=== PATIENT | male | born 1985 | race Caucasian/White ===

== ENCOUNTER 2023-07-22 18:03 | Emergency (ER) | payer OTHER, SELFPAY ==
--- NOTE | ~2023-07-22 | XR_ITS ---
AP and lateral views of the left hip Clinical history: Pain Findings: No definite acute fracture or dislocation is seen. Probable chronic posttraumatic change or enthesopathic change at the greater trochanter.. Left hip joint space is preserved. Soft tissues are unremarkable. Impression: No definite acute abnormality seen. Probable chronic posttraumatic change or enthesopathic change at the greater trochanter. If there is clinical concern for acute fracture isolated to the greater troch anter, then consider cross-sectional imaging for further evaluation. Reviewed, dictated and finalized at location . Impression: No definite acute abnormality seen. Probable chronic posttraumatic change or en thesopathic change at the greater trochanter. If there is clinical concern for acute fracture isolated to the greater trochanter, then consider cross-sectiona l imaging for further evaluation.
[2023-07-22 18:25] VITALS: BP 139/81; PULSE 82; RESP 16; TEMP 37.1; O2SAT 97
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
== END 2023-07-22 19:15 | disposition home or self-care (01) ==
PROVIDERS: Emergency Provider Registered Nurse
DX: S81.802A Unspecified open wound, left lower leg, initial encounter (principal); W20.8XXA Other cause of strike by thrown, projected or falling object, initial encounter; M25.552 Pain in left hip
CPT/HCPCS: 73502; 99213; G0463